=== PATIENT | female | born 1990 | race Native Hawaiian/Other Pacific Islander ===

== ENCOUNTER 2020-10-07 13:40 | Emergency (ER) | payer OTHER ==
[~2020-10-07] VITALS: Ht 165.1 cm; Wt 61.2 kg
[2020-10-07 14:02] VITALS: TEMP 98.1
[2020-10-07 15:00] VITALS: BP 122/70
== END 2020-10-07 15:00 | disposition home or self-care (01) ==
LOC: ED 13:40
DX: H60.8X2 Other otitis externa, left ear (principal); H61.23 Impacted cerumen, bilateral
CPT/HCPCS: 99281

== ENCOUNTER 2021-12-10 13:58 | Emergency (ER) | payer OTHER ==
[~2021-12-10] VITALS: Ht 165.1 cm; Wt 61.2 kg
[2021-12-10 14:00] VITALS: BP 139/92; TEMP 97.4
== END 2021-12-10 16:50 | disposition home or self-care (01) ==
LOC: ED 13:58
PROC: 2W3KX1Z Immobilization of Left Finger using Splint (ICD-10-PCS; principal; 2021-12-10)
DX: S62.643B Nondisplaced fracture of proximal phalanx of left middle finger, initial encounter for open fracture (principal); Y08.89XA Assault by other specified means, initial encounter; Y92.89 Other specified places as the place of occurrence of the external cause
CPT/HCPCS: 90715; 96372; 99283; J0690; J1885

== ENCOUNTER 2022-02-26 10:42 | Emergency (ER) | payer OTHER | END 2022-02-26 11:00 | disposition left against medical advice (07) | LOC: ED 10:42 | DX: Z53.21 Procedure and treatment not carried out due to patient leaving prior to being seen by health care provider (principal) ==